=== PATIENT | female | born 1980 | race Caucasian/White ===

== ENCOUNTER 2018-01-18 17:26 | Emergency (ER) | payer OTHER ==
[~2018-01-18] VITALS: Ht 177.8 cm; Wt 70.3 kg
[2018-01-18] MEDS ORDERED: ALBUTEROL2.5 MG/31 INH (17:35)
[2018-01-18] MEDS ORDERED: ZPAC (17:35)
[2018-01-18] MEDS ORDERED: CREAM FOR ECZEMA (17:35)
[2018-01-18] MEDS ORDERED: CLEOCIN HCL150 MG PO (18:02)
[2018-01-18 18:14] VITALS: BP 100/73
== END 2018-01-18 18:14 | disposition home or self-care (01) ==
LOC: M.ERS 17:26
DX: K08.89 Other specified disorders of teeth and supporting structures (principal); J45.909 Unspecified asthma, uncomplicated; K21.9 Gastro-esophageal reflux disease without esophagitis; Z88.1 Allergy status to other antibiotic agents; Z91.040 Latex allergy status; Z88.8 Allergy status to other drugs, medicaments and biological substances

== ENCOUNTER 2021-09-20 18:41 | Emergency (ER) | payer BC ==
[~2021-09-20] VITALS: Ht 177.8 cm; Wt 74.8 kg
[~2021-09-20 18:41] MED LIST: ALBUTEROL2.5 MG/31 INH; CLEOCIN HCL150 MG PO; CREAM FOR ECZEMA; ZPAC
[2021-09-20] MEDS ORDERED: IBUPROFEN 800800 M1 PO (21:03)
[2021-09-20] MEDS ORDERED: FLEXERIL PO (21:03)
[2021-09-20 21:09] VITALS: BP 112/64
== END 2021-09-20 21:09 | disposition home or self-care (01) ==
LOC: M.ERS 18:41
DX: S90.32XA Contusion of left foot, initial encounter (principal); J45.909 Unspecified asthma, uncomplicated; K21.9 Gastro-esophageal reflux disease without esophagitis; Z79.899 Other long term (current) drug therapy; Z88.0 Allergy status to penicillin; Z91.040 Latex allergy status; Z88.8 Allergy status to other drugs, medicaments and biological substances; W22.8XXA Striking against or struck by other objects, initial encounter; Y93.89 Activity, other specified; Y92.89 Other specified places as the place of occurrence of the external cause; Y99.8 Other external cause status

== ENCOUNTER 2021-11-10 21:22 | Emergency (ER) | payer OTHER ==
[~2021-11-10] VITALS: Ht 177.8 cm; Wt 72.6 kg
[~2021-11-10 21:22] MED LIST changes: +FLEXERIL PO; +IBUPROFEN 800800 M1 PO
[2021-11-10 21:26] VITALS: BP 129/57
[2021-11-10] MEDS ORDERED: IRON18 M1 PO (21:31)
[2021-11-10] MEDS ORDERED: TRELEGY ELLIPT1 EACH INH (21:31)
[2021-11-10] MEDS ORDERED: OMEPRAZOLE 20 M20 M1 PO (21:31)
[2021-11-10 22:45] LABS: INFLUENZA A ANTIGEN Negative (Negative); INFLUENZA B ANTIGEN Negative (Negative)
[2021-11-11] MEDS ORDERED: ACETAMINOPHEN-1 EAC2 PORT (01:19)
[2021-11-11] MEDS ORDERED: BANOPHEN12.5 MG/5 PO (01:19)
== END 2021-11-11 01:26 | disposition home or self-care (01) ==
LOC: M.ERS 21:22
PROVIDERS: Physician Assistant
DX: B34.9 Viral infection, unspecified (principal); R50.9 Fever, unspecified; J45.909 Unspecified asthma, uncomplicated; K21.9 Gastro-esophageal reflux disease without esophagitis; Z79.891 Long term (current) use of opiate analgesic; Z79.899 Other long term (current) drug therapy; Z79.51 Long term (current) use of inhaled steroids; Z88.1 Allergy status to other antibiotic agents; Z88.0 Allergy status to penicillin; Z88.8 Allergy status to other drugs, medicaments and biological substances; Z88.6 Allergy status to analgesic agent; Z91.040 Latex allergy status

== ENCOUNTER 2021-12-16 22:13 | Emergency (ER) | payer OTHER ==
[~2021-12-16] VITALS: Ht 180.3 cm; Wt 72.6 kg
[~2021-12-16 22:13] MED LIST changes: +ACETAMINOPHEN-1 EAC2 PORT; +BANOPHEN12.5 MG/5 PO; +IRON18 M1 PO; +OMEPRAZOLE 20 M20 M1 PO; +TRELEGY ELLIPT1 EACH INH
[2021-12-16 23:57] LABS: URINE BILIRUBIN NEGATIVE (Negative); URINE BLOOD TRACE (Negative); URINE CLARITY CLEAR; URINE COLOR YELLOW; URINE GLUCOSE-RANDOM NEGATIVE (Negative); URINE KETONES NEGATIVE (Negative); URINE LEUKOCYTES-REFLEX NEGATIVE (Negative); URINE NITRITE-REFLEX NEGATIVE (Negative); URINE PROTEIN NEGATIVE (Negative); URINE SPECIFIC GRAVITY 1.015 (1.005-1.030); URINE UROBILINOGEN 0.2 E.U./dl (0.2-1.0)
[2021-12-17 00:04] LABS: AMP/METHAMP Negative (Negative); BARBITURATES Negative (Negative); BENZODIAZEPINES Negative (Negative); COCAINE Negative (Negative); METHADONE Negative (Negative); OPIATES Negative (Negative); PCP Negative (Negative); THC Negative (Negative)
[2021-12-17 00:13] LABS: ABSOLUTE LYMPHOCYTES 0.5 thou/uL (0.8-5.3); ABSOLUTE MONOCYTES 0.3 thou/uL (0.0-1.2); ABSOLUTE NEUTROPHILS 1.3 thou/uL (1.6-8.1); BASOPHILS 0.6 %; EOSINOPHILS 0.6 %; HEMATOCRIT 32.4 % (37.0-47.0); HEMOGLOBIN 10.5 gm/dL (12.0-15.0); LYMPHOCYTES 22.1 %; MCH 28.2 pg (26.0-34.0); MCHC 32.3 g/dL (28.0-37.0); MCV 87.1 fL (80.0-100.0); MONOCYTES 14.4 %; MPV 9.3 fl. (7.2-11.1); NUCLEATED RBCS 0 /100WBC; PLATELET COUNT* 194 thou/uL (150-400); POLYS 62.3 %; RBC 3.72 mil/uL (4.20-5.00); RDW-CV 17.3 % (10.5-14.5); WBC 2.1 thou/uL (4.0-11.0)
[2021-12-17 00:23] LABS: CALCIUM 8.2 mg/dL (8.5-10.1); CREATININE 0.7 mg/dL (0.6-1.3); POTASSIUM 3.7 mmol/L (3.5-5.1)
[2021-12-17 00:29] LABS: ALBUMIN 3.5 g/dL (3.4-5.0); TOTAL BILIRUBIN 0.2 mg/dL (<0.1-1.0); TOTAL PROTEIN 6.3 g/dL (6.4-8.2)
[2021-12-17] MEDS ORDERED: ZOFRAN ODT4 MG PO (03:04)
[2021-12-17 03:24] VITALS: BP 128/98
== END 2021-12-17 03:25 | disposition home or self-care (01) ==
LOC: M.ERS 22:13
PROVIDERS: Personal Emergency Response Attendant
DX: K52.9 Noninfective gastroenteritis and colitis, unspecified (principal); R11.2 Nausea with vomiting, unspecified; J45.909 Unspecified asthma, uncomplicated; K21.9 Gastro-esophageal reflux disease without esophagitis; Z79.899 Other long term (current) drug therapy; Z88.1 Allergy status to other antibiotic agents; Z91.040 Latex allergy status; Z88.0 Allergy status to penicillin; Z88.8 Allergy status to other drugs, medicaments and biological substances